=== PATIENT | female | born 1970 | race Caucasian/White ===

== ENCOUNTER 2021-11-01 08:17 | Emergency (ER) | payer OTHER ==
[2021-11-01] MEDS ORDERED: KETOROLAC 30 MG/ML INJ ONE (08:49)
[2021-11-01] MEDS ORDERED: CYCLOBENZAPRINE 10 MG TAB ONE (08:49)
[2021-11-01] MEDS ORDERED: dexAMETHasone 10 MG/ML VIAL ONE (08:49)
--- NOTE | 2021-11-01 09:37 | EDPHYS ---
Physician Documentation [facility] Name: Alfreda Subramanian Age: 51 yrs Sex: Female : 1970 Arrival Date: 11/01/2021 Time: 08:19 Bed 12 Private MD: ED Physician Jose Barillas HPI: 11/01 08:32 This 51 yrs old Female presents to ER via Unassigned with complaints of left jl9 lower back pain/ tightness. Patient reports possibly twisting her back while stretching. . 08:32 The patient presents with pain that is acute, with no known mechanism of injury. The jl9 symptoms are located in the low back. Onset: The symptoms/episode began/occurred 2 day(s) ago. The pain radiates to the left leg. Associated signs and symptoms: Pertinent negatives: numbness, tingling. Severity of symptoms: in the emergency department the symptoms a " 7" out of "10". The patient has not experienced similar symptoms in the past. [employer]: 08:36 LMP N/A - Hysterectomy ph Historical: - Allergies: 08:35 No Known Allergies; ph - Immunization history:: Adult Immunizations unknown. - Social history:: Smoking status: Reported history of juuling and/or vaping. ROS: 08:34 Constitutional: Negative for fever, chills, and weight loss, Eyes: Negative for injury, jl9 pain, redness, and discharge, ENT: Negative for injury, pain, and discharge, Neck: Negative for injury, pain, and swelling, Cardiovascular: Negative for chest pain, palpitations, and edema, Respiratory: Negative for shortness of breath, cough, wheezing, and pleuritic chest pain, Abdomen/GI: Negative for abdominal pain, nausea, vomiting, diarrhea, and constipation. 08:34 : Negative for injury, bleeding, discharge, and swelling, MS/Extremity: Negative for injury and deformity, Skin: Negative for injury, rash, and discoloration, Neuro: Negative for headache, weakness, numbness, tingling, and seizure, Psych: Negative for depression, anxiety, suicide ideation, homicidal ideation, and hallucinations, Allergy/Immunology: Negative for hives, rash, and allergies, Endocrine: Negative for neck swelling, polydipsia, polyuria, polyphagia, and marked weight changes, Hematologic/Lymphatic: Negative for swollen nodes, abnormal bleeding, and unusual bruising. 08:34 Back: Positive for decreased range of motion, pain with movement, radiated pain, of the left low back. Exam: 08:34 Constitutional: This is a well developed, well nourished patient who is awake, alert, jl9 and in no acute distress. Head/Face: Normocephalic, atraumatic. Eyes: Pupils equal round and reactive to light, extra-ocular motions intact. Lids and lashes normal. Conjunctiva and sclera are non-icteric and not injected. Cornea within normal limits. Periorbital areas with no swelling, redness, or edema. ENT: Mucous membranes moist. Neck: Trachea midline, no thyromegaly or masses palpated, and no cervical lymphadenopathy. Supple, full range of motion without nuchal rigidity, or vertebral point tenderness. No Meningismus. Chest/axilla: Normal chest wall appearance and motion. Nontender with no deformity. No lesions are appreciated. Cardiovascular: Regular rate and rhythm with a normal S1 and S2. No gallops, murmurs, or rubs. Normal PMI, no JVD. No pulse deficits. Respiratory: Lungs have equal breath sounds bilaterally, clear to auscultation and percussion. No rales, rhonchi or wheezes noted. No increased work of breathing, no retractions or nasal flaring. Abdomen/GI: Soft, non-tender, with normal bowel sounds. No distension or tympany. No guarding or rebound. No evidence of tenderness throughout. 08:34 Skin: Warm, dry with normal turgor. Normal color with no rashes, no lesions, and no evidence of cellulitis. MS/ Extremity: Pulses equal, no cyanosis. Neurovascular intact. Full, normal range of motion. Neuro: Awake and alert, GCS 15, oriented to person, place, time, and situation. Cranial nerves II-XII grossly intact. Motor strength 5/5 in all extremities. Sensory grossly intact. Cerebellar exam normal. Normal gait. Psych: Awake, alert, with orientation to person, place and time. Behavior, mood, and affect are within normal limits. 08:34 Back: pain, that is moderate, of the left low back, ROM is decreased, with all movement, normal spinal alignment noted, CVA tenderness, is absent, vertebral tenderness, is not appreciated, muscle spasm, is appreciated in the left low back. Vital Signs: 08:30 BP 122 / 99; Pulse 92; Resp 18; Temp 97.4; Pulse Ox 97% on R/A; Weight 99.79 kg; Height ph 5 ft. 4 in. (162.56 cm); 08:30 Body Mass Index 37.76 (99.79 kg, 162.56 cm) ph MDM: 08:27 Patient medically screened. jl9 08:35 Data reviewed: vital signs, nurses notes. jl9 09:35 Counseling: I had a detailed discussion with the patient and/or guardian regarding: the jl9 historical points, exam findings, and any diagnostic results supporting the discharge/admit diagnosis, the need for outpatient follow up, to return to the emergency department if symptoms worsen or persist or if there are any questions or concerns that arise at home. Response to treatment: the patient's symptoms have markedly improved after treatment. Administered Medications: 08:48 Drug: Dexamethasone 10 mg Route: IM; Site: right vastus lateralis; ph 10:00 Follow up: Response: No adverse reaction ph 08:48 Drug: Cyclobenzaprine 10 mg Route: PO; ph 10:00 Follow up: Response: No adverse reaction; Pain is decreased ph 08:49 Drug: Ketorolac 60 mg Route: IM; Site: right vastus lateralis; ph 10:00 Follow up: Response: No adverse reaction ph Disposition: 09:39 Co-signature as Attending Physician, Jose FORD was immediately available onsite ms3 in the emergency department for consultation in the care of the patient.. Disposition Summary: 11/01/21 09:36 Discharge Ordered Location: Home jl9 Condition: Stable jl9 Diagnosis - Low back pain jl9 Followup: jl9 - With: Private Physician - When: 1 - 2 days - Reason: Recheck today's complaints, Continuance of care, Re-evaluation by your physician Discharge Instructions: - Discharge Summary Sheet jl9 - Acute Back Pain, Adult jl9 Forms: - Medication Reconciliation Form jl9 - Thank You Letter jl9 - Antibiotic Education jl9 - Prescription Opioid Use jl9 Prescriptions: - Ibuprofen 800 mg Oral Tablet - take 1 tablet by ORAL route every 8 hours As needed take with food; 30 tablet; jl9 Refills: 0, Product Selection Permitted - Cyclobenzaprine 10 mg Oral Tablet - take 1 tablet by ORAL route every 8 hours As needed; 30 tablet; Refills: 0, jl9 Product Selection Permitted Signatures: Angie Campos RN RN Jose Lott DO DO ms3 Fahad Jimenez jl9
--- NOTE | 2021-11-01 09:37 | ER ---
Nurse's Notes [facility] Name: Alfreda Subramanian Age: 51 yrs Sex: Female : 1970 Arrival Date: 11/01/2021 Time: 08:19 Bed 12 Private MD: Diagnosis: Low back pain Presentation: 11/01 08:30 Chief complaint: Patient states: L sided mid-back pain since Friday, denies injury. ph Coronavirus screen: Vaccine status: Patient reports being unvaccinated. Ebola Screen: No symptoms or risks identified at this time. Initial Sepsis Screen: Does the patient meet any 2 criteria? No. Patient's initial sepsis screen is negative. Does the patient have a suspected source of infection? No. Patient's initial sepsis screen is negative. Risk Assessment: Do you want to hurt yourself or someone else? Patient reports no desire to harm self or others. Onset of symptoms was November 01, 2021. 08:30 Method Of Arrival: Ambulatory ph 08:30 Acuity: GEETHA 4 ph Triage Assessment: 08:37 General: Appears in no apparent distress. uncomfortable, Behavior is calm, cooperative, ph appropriate for age. Pain: Complains of pain in right mid back and right low back. Neuro: Level of Consciousness is awake, alert, obeys commands, Oriented to person, place, time, situation. Musculoskeletal: Circulation, motion, and sensation intact. Range of motion: intact in all extremities. 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 - Social history:: Smoking status: Reported history of juuling and/or vaping. Screenin:35 Abuse screen: Denies threats or abuse. Denies injuries from another. Nutritional ph screening: No deficits noted. Tuberculosis screening: No symptoms or risk factors identified. Fall Risk None identified. Assessment: 09:50 General: SEE TRIAGE ASSESSMENT. ph Vital Signs: 08:30 BP 122 / 99; Pulse 92; Resp 18; Temp 97.4; Pulse Ox 97% on R/A; Weight 99.79 kg; Height ph 5 ft. 4 in. (162.56 cm); 08:30 Body Mass Index 37.76 (99.79 kg, 162.56 cm) ph ED Course: 08:19 Patient arrived in ED. rg4 08:25 Fahad Jimenez is PHCP. jl9 08:25 Jsoe Barillas DO is Attending Physician. jl9 08:30 Angie Campos, NIHARIKA is Primary Nurse. ph 08:35 Triage completed. ph 08:35 Arm band placed on Patient placed in an exam room. ph 08:36 Patient has correct armband on for positive identification. Bed in low position. Call ph light in reach. Side rails up X 1. Door closed. Noise minimized. Warm blanket given. 08:36 No provider procedures requiring assistance completed. Patient did not have IV access ph during this emergency room visit. Administered Medications: 08:48 Drug: Dexamethasone 10 mg Route: IM; Site: right vastus lateralis; ph 10:00 Follow up: Response: No adverse reaction ph 08:48 Drug: Cyclobenzaprine 10 mg Route: PO; ph 10:00 Follow up: Response: No adverse reaction; Pain is decreased ph 08:49 Drug: Ketorolac 60 mg Route: IM; Site: right vastus lateralis; ph 10:00 Follow up: Response: No adverse reaction ph Medication: 08:36 VIS not applicable for this client. ph Outcome: 09:36 Discharge ordered by . jl9 10:04 Patient left the ED. 3 10:04 Discharged to home ambulatory. ph 10:04 Condition: good 10:04 Discharge instructions given to patient, Instructed on discharge instructions, follow up and referral plans. medication usage, Demonstrated understanding of instructions, follow-up care, medications, Prescriptions given X 2. Signatures: Angie Campos, RN RN Felicia Lewis [facility] Ruth Carson [facility] Fahad Jimenez 9
[2021-11-01 10:15] VITALS: BP 122/99; TEMP 97.4; O2SAT 97
== END 2021-11-01 10:04 | disposition home or self-care (01) ==
LOC: ER 08:17
DX: M54.50 Low back pain, unspecified (principal)
CPT/HCPCS: 96372; 99283; J1100